=== PATIENT | male | born 1930 | race Hispanic/Latino ===

== ENCOUNTER 2017-11-22 15:37 | Inpatient (IN) | payer MEDICARE ==
[~2017-11-22] VITALS: Ht 165.1 cm; Wt 69.5 kg
[2017-11-22] MEDS ORDERED: ASPIRIN 325 MG TABLET ONE (15:54)
[2017-11-22 16:11] LABS: BASOPHILS % (AUTO) 0.4 % (0.0-5.0); EOSINOPHILS % (AUTO) 0.6 % (0.0-8.0); HEMATOCRIT 38.6 % (42-54); LYMPHOCYTES % (AUTO) 24.6 % (21.0-51.0); MEAN CORPUSCULAR HEMOGLOBIN 32.4 pg (27.0-33.0); MEAN CORPUSCULAR HGB CONC 33.2 g/dL (32.0-36.0); MEAN CORPUSCULAR VOLUME 97.9 fL (79-99); MONOCYTES % (AUTO) 11.8 % (3.0-13.0); NEUTROPHILS % (AUTO) 62.6 % (40.0-77.0); NUCLEATED RED BLOOD CELLS 0.1 % (0.0-0.19); PLATELET COUNT (AUTO) 173 K/uL (130-400); RED BLOOD CELL COUNT(AUTO) 3.94 MIL/uL (4.50-6.20); RED CELL DISTRIBUTION WIDTH 14.6 % (11.0-15.5); WHITE BLOOD COUNT (AUTO) 5.3 K/uL (4.8-10.8)
[2017-11-22 16:33] LABS: INR 1.12 (0.85-1.15); PROTHROMBIN TIME 11.7 SEC (9.6-11.6)
[2017-11-22 16:37] LABS: CREATININE 2.2 mg/dL (0.5-1.5); POTASSIUM 4.8 mmol/L (3.5-5.1)
[2017-11-22 16:47] LABS: ALBUMIN 3.6 g/dL (3.5-5.0); BILIRUBIN,TOTAL 0.6 mg/dL (0.2-1.0)
[2017-11-22 16:58] LABS: APPEARANCE,URINE Clear (CLEAR); BILIRUBIN,URINE Negative (NEGATIVE); COLOR,URINE Yellow (YELLOW); GLUCOSE, URINE (UA) Negative (NEGATIVE); KETONES,URINE Negative (NEGATIVE); LEUKOCYTE ESTERASE ,URINE Trace (NEGATIVE); NITRATE,URINE Negative (NEGATIVE); OCCULT BLOOD,URINE Negative (NEGATIVE); PH,URINE 5.5 (5.0-8.0); PROTEIN,URINE POS 2+ (NEGATIVE)
[2017-11-22] MEDS ORDERED: FUROSEMIDE 10 MG/ML 4ML VIAL ONE (17:11)
[2017-11-22] MEDS ORDERED: NITROGLYCERIN 1GM/1 INCH PACKET TD ONE (17:11)
[2017-11-22 17:12] LABS: BACTERIA,URINE None Seen /HPF (None Seen); RBC,URINE None Seen /HPF (0-1); SQUAMOUS EPITHELIAL CELL,UR 0-2 /HPF (0-2); WBC,URINE 0-1 /HPF (0-1)
[2017-11-22] MEDS ORDERED: SODIUM CHLORIDE 0.9% 1000ML 1,000 ML IV ONE (18:07)
[2017-11-22] MEDS ORDERED: ENOXAPARIN SODIUM 30 MG/0.3 ML SQ ONE (18:07)
[2017-11-22] MEDS ORDERED: METOPROLOL TARTRATE 25 MG TAB PO SCH (21:00)
[2017-11-22] MEDS ORDERED: TAMS-1 PO (22:16)
[2017-11-22] MEDS ORDERED: ASPI-1012 PO (22:16)
[2017-11-22] MEDS ORDERED: SIMV40TA5 PO (22:16)
[2017-11-22] MEDS ORDERED: NITR0.3T11 SL (22:16)
[2017-11-22] MEDS ORDERED: CHOL100018 PO (22:16)
[2017-11-22] MEDS ORDERED: METO25TA6 PO (22:16)
[2017-11-22] MEDS ORDERED: LEVO75TA4 PO (22:16)
[2017-11-22] MEDS ORDERED: CYAN10009 PO (22:16)
[2017-11-22 23:00] VITALS: BP 142/79
[2017-11-22] MEDS: ZOLPIDEM TARTRATE 5 MG TAB PO PRN (23:16)
[2017-11-22] MEDS: TAMSULOSIN HCL 0.4 MG CAP.ER.24H PO SCH (23:18)
[2017-11-22] MEDS: SIMVASTATIN 20 MG TABLET PO SCH (23:18)
[2017-11-23] MEDS ORDERED: NITROGLYCERIN 1GM/1 INCH PACKET TD SCH
[2017-11-23 02:19] LABS: CREATINE KINASE, TOTAL 77 U/L (21-232); MYOGLOBIN 167 ng/mL (10-92); TROPONIN I < 0.04 ng/mL (0.00-0.06)
[2017-11-23 02:36] LABS: HEMATOCRIT 36.4 % (42-54); MEAN CORPUSCULAR HEMOGLOBIN 32.3 pg (27.0-33.0); MEAN CORPUSCULAR HGB CONC 33.2 g/dL (32.0-36.0); MEAN CORPUSCULAR VOLUME 97.2 fL (79-99); PLATELET COUNT (AUTO) 151 K/uL (130-400); RED BLOOD CELL COUNT(AUTO) 3.74 MIL/uL (4.50-6.20); RED CELL DISTRIBUTION WIDTH 14.1 % (11.0-15.5); WHITE BLOOD COUNT (AUTO) 6.7 K/uL (4.8-10.8)
[2017-11-23 02:40] LABS: ALBUMIN 3.5 g/dL (3.5-5.0); BILIRUBIN,TOTAL 1.1 mg/dL (0.2-1.0); CREATININE 2.1 mg/dL (0.5-1.5); MAGNESIUM 1.6 mg/dL (1.80-2.40); POTASSIUM 4.5 mmol/L (3.5-5.1); THYROID STIMULATING HORMONE 2.31 uIU/mL (0.36-3.74); TOTAL PROTEIN, SERUM 6.2 g/dL (6.0-8.3)
[2017-11-23 03:00] VITALS: BP 109/46
[2017-11-23 03:04] LABS: B-TYPE NATRIURETIC PEPTIDE 1490 pg/mL (0-100)
[2017-11-23] MEDS: SODIUM CHLORIDE 0.9% 1000ML 1,000 ML IV SCH ×3 (06:48→21:10)
[2017-11-23] MEDS: LEVOTHYROXINE 75 MCG TABLET PO SCH (06:48)
[2017-11-23 07:00] VITALS: BP 122/57
[2017-11-23] MEDS ORDERED: FUROSEMIDE 10 MG/ML 4ML VIAL IV SCH (07:15)
[2017-11-23] MEDS ORDERED: REGADENOSON 0.4 MG/5 ML PF SYG IVP SCH (08:00)
[2017-11-23 08:12] LABS: CREATINE KINASE, TOTAL 76 U/L (21-232); MYOGLOBIN 188 ng/mL (10-92); TROPONIN I < 0.04 ng/mL (0.00-0.06)
[2017-11-23] MEDS: VITAMIN D3 1000 UNIT PO SCH (09:00)
[2017-11-23] MEDS ORDERED: LISINOPRIL 5 MG TABLET PO SCH (09:00)
[2017-11-23] MEDS: NITROGLYCERIN 1GM/1 INCH PACKET TD SCH ×2 (12:00→16:23)
[2017-11-23 16:00] VITALS: BP 136/66
[2017-11-23] MEDS: ASPIRIN 81MG TAB.CHEW PO SCH (16:21)
[2017-11-23] MEDS: CYANOCOBALAMIN (VITAMIN B-12) 1,000 MCG TABLET PO SCH (16:21)
[2017-11-23] MEDS: ENOXAPARIN SODIUM 30 MG/0.3 ML SQ SCH (16:22)
[2017-11-23 20:00] VITALS: BP 152/73
[2017-11-23] MEDS: ZOLPIDEM TARTRATE 5 MG TAB PO PRN (20:48)
[2017-11-23] MEDS: TAMSULOSIN HCL 0.4 MG CAP.ER.24H PO SCH (20:48)
[2017-11-23] MEDS: SIMVASTATIN 20 MG TABLET PO SCH (20:48)
[2017-11-23 23:00] VITALS: BP 139/62
[2017-11-24] MEDS: NITROGLYCERIN 1GM/1 INCH PACKET TD SCH ×3 (01:10→12:11)
[2017-11-24 03:00] VITALS: BP 137/73
[2017-11-24] MEDS: LEVOTHYROXINE 75 MCG TABLET PO SCH (06:06)
[2017-11-24] MEDS ORDERED: MAGNESIUM 2GM PREMIX 50ML 50 ML IV SCH (06:45)
[2017-11-24 07:15] VITALS: BP 142/67
[2017-11-24] MEDS: ASPIRIN 81MG TAB.CHEW PO SCH (08:42)
[2017-11-24] MEDS: ENOXAPARIN SODIUM 30 MG/0.3 ML SQ SCH (08:42)
[2017-11-24] MEDS: CYANOCOBALAMIN (VITAMIN B-12) 1,000 MCG TABLET PO SCH (08:42)
[2017-11-24] MEDS: VITAMIN D3 1000 UNIT PO SCH (08:43)
[2017-11-24] MEDS ORDERED: LOSARTAN 50 MG TABLET PO SCH (09:00)
[2017-11-24 11:21] VITALS: BP 142/66
[2017-11-24] MEDS ORDERED: CARVEDILOL 3.125 MG TABLET PO SCH (21:00)
== END 2017-11-24 13:45 | disposition home or self-care (01) | DRG 291 ==
LOC: EDH 15:37 → 4CH 17:29 → EDHIP 18:51 → 2DH 20:31
PROVIDERS: ADMIT Family Medicine; ATTEND Family Medicine
DX: I13.0 Hypertensive heart and chronic kidney disease with heart failure and stage 1 through stage 4 chronic kidney disease, or unspecified chronic kidney disease (principal); I50.43 Acute on chronic combined systolic (congestive) and diastolic (congestive) heart failure; I25.119 Atherosclerotic heart disease of native coronary artery with unspecified angina pectoris; E11.22 Type 2 diabetes mellitus with diabetic chronic kidney disease; E78.5 Hyperlipidemia, unspecified; I44.7 Left bundle-branch block, unspecified; N28.9 Disorder of kidney and ureter, unspecified; N40.0 Benign prostatic hyperplasia without lower urinary tract symptoms; E83.42 Hypomagnesemia; N18.9 Chronic kidney disease, unspecified; Z79.899 Other long term (current) drug therapy; Z79.4 Long term (current) use of insulin; I25.2 Old myocardial infarction
CPT/HCPCS: 36415; 71045; 78452; 80053; 80061; 81001; 82550; 83735; 83874; 83880; 84439; 84443; 84481; 84484; 85025; 85027; 85610; 85730; 93005; 93017; 93306; 96374; 99291; A9500; J1650; J1940; J2785; J3475; J7030

== ENCOUNTER 2019-04-09 19:40 | Observation (INO) | payer OTHER ==
[~2019-04-09] VITALS: Ht 172.7 cm; Wt 64.3 kg
[~2019-04-09 19:40] MED LIST: ASPI-1012 PO; CHOL100018 PO; CYAN-52 PO; LEVO75TA4 PO; METO25TA6 PO; NITR0.3T11 SL; SIMV-46 PO; TAMS-1 PO
[2019-04-09 20:26] LABS: BASOPHILS % (AUTO) 0.2 % (0.0-5.0); EOSINOPHILS % (AUTO) 0.8 % (0.0-8.0); HEMATOCRIT 33.2 % (42-54); LYMPHOCYTES % (AUTO) 26.6 % (21.0-51.0); MEAN CORPUSCULAR HEMOGLOBIN 34.7 pg (27.0-33.0); MEAN CORPUSCULAR HGB CONC 32.8 g/dL (32.0-36.0); MEAN CORPUSCULAR VOLUME 105.7 fL (79-99); MONOCYTES % (AUTO) 10.9 % (3.0-13.0); NEUTROPHILS % (AUTO) 61.2 % (40.0-77.0); PLATELET COUNT (AUTO) 185 K/uL (130-400); RED BLOOD CELL COUNT(AUTO) 3.14 MIL/uL (4.50-6.20); RED CELL DISTRIBUTION WIDTH 17.7 % (11.0-15.5); WHITE BLOOD COUNT (AUTO) 6.4 K/uL (4.8-10.8)
[2019-04-09 20:37] LABS: CREATININE 1.6 mg/dL (0.5-1.5); POTASSIUM 4.6 mmol/L (3.5-5.1)
[2019-04-09 20:41] LABS: ALBUMIN 2.9 g/dL (3.5-5.0); BILIRUBIN,TOTAL 0.9 mg/dL (0.2-1.0); TOTAL PROTEIN, SERUM 6.9 g/dL (6.0-8.3)
[2019-04-09 20:42] LABS: INR 1.12 (0.85-1.15); PARTIAL THROMBOPLASTIN TIME 27.9 SEC (26.3-35.5); PROTHROMBIN TIME 11.7 SEC (9.6-11.6)
[2019-04-09] MEDS ORDERED: DiphenhydrAMINE HCL 50 MG/ML VIAL ONE (21:09)
[2019-04-09] MEDS ORDERED: HALOPERIDOL LACTATE 5 MG/ML VIAL ONE (21:48)
[2019-04-09] MEDS ORDERED: ZOSYN 3.375GM+NS 50ML 50 ML IV ONE (21:59)
[2019-04-09] MEDS ORDERED: FAMOTIDINE/PF 20 MG/2 ML VIAL IV ONE (22:00)
[2019-04-09] MEDS ORDERED: ACETAMINOPHEN 325 MG TAB PO PRN (22:00)
[2019-04-09] MEDS ORDERED: ONDANSETRON HCL 4 MG/2 ML VIAL IV PRN (22:00)
[2019-04-09] MEDS ORDERED: LACTULOSE 20 GM/30 ML UDCUP PO PRN (22:00)
[2019-04-09] MEDS ORDERED: LACTATED RINGERS 1000ML 1,000 ML IV ONE (22:00)
[2019-04-09] MEDS ORDERED: INSULIN HUMULIN R 100 UNIT/ML 3ML ONE (22:01)
[2019-04-09] MEDS ORDERED: SODIUM CHLORIDE 0.9% 250 ML IV ONE (23:50)
[2019-04-10] LABS: HEMATOCRIT 34.1 % (42-54)
[2019-04-10] MEDS ORDERED: LORAZEPAM 2 MG/ML 1 ML VIAL ONE (01:00)
[2019-04-10 01:41] VITALS: BP 128/72
[2019-04-10] MEDS ORDERED: ZIPRASIDONE MESYLATE 20 MG/VIAL IM ONE (02:30)
[2019-04-10 03:37] LABS: BASOPHILS % (AUTO) 0.1 % (0.0-5.0); HEMATOCRIT 31.8 % (42-54); LYMPHOCYTES % (AUTO) 9.7 % (21.0-51.0); MEAN CORPUSCULAR HEMOGLOBIN 34.3 pg (27.0-33.0); MEAN CORPUSCULAR HGB CONC 32.4 g/dL (32.0-36.0); MONOCYTES % (AUTO) 8.4 % (3.0-13.0); NEUTROPHILS % (AUTO) 81.2 % (40.0-77.0); NUCLEATED RED BLOOD CELLS 0.2 % (0.0-0.19); PLATELET COUNT (AUTO) 160 K/uL (130-400); RED CELL DISTRIBUTION WIDTH 17.5 % (11.0-15.5); WHITE BLOOD COUNT (AUTO) 8.5 K/uL (4.8-10.8)
[2019-04-10 03:48] VITALS: BP 101/59
[2019-04-10 04:19] LABS: CREATININE 1.9 mg/dL (0.5-1.5); POTASSIUM 4.5 mmol/L (3.5-5.1)
[2019-04-10 07:30] VITALS: BP 100/65
[2019-04-10 08:09] LABS: HEMATOCRIT 29.8 % (42-54)
[2019-04-10] MEDS: FAMOTIDINE/PF 20 MG/2 ML VIAL IV SCH ×2 (08:40→21:13)
[2019-04-10] MEDS: IPRATROPIUM/ALBUTEROL SULFATE 3 ML SOLUTION IH PRN ×3 (09:04→21:10)
[2019-04-10] MEDS ORDERED: CEFTRIAXONE SODIUM 2 GM VIAL IVP SCH (09:15)
[2019-04-10 11:30] VITALS: BP 96/58
--- NOTE | 2019-04-10 11:59 | NUR ---
D/C PLAN CM spoke to patient's daughter named Kaylee. Reports pt has dementia and unable to answer questions. [facility] pt lives with spouse. Has provider about 16 hrs/week. [facility] pt also has private caregiver. Reports pt has assistance 09/09. [facility] pt has w/c and wk at home. [facility] plan is to return home to previous setting. Denies having any home health services. No needs verbalized. Plan to home. CM to f/u. Addendum: 04/10/19 at 1202 by TOPHER CARDONA CM Amended: Links added.
[2019-04-10] MEDS ORDERED: POTASSIUM CHLORIDE 20 MEQ ERTAB PO SCH (12:15)
[2019-04-10] MEDS ORDERED: FUROSEMIDE 10 MG/ML 4ML VIAL IV SCH (12:15)
[2019-04-10 14:17] LABS: HEMATOCRIT 30.6 % (42-54)
[2019-04-10 15:30] VITALS: BP 98/47
[2019-04-10 23:25] VITALS: BP 126/72
[2019-04-11 03:25] VITALS: BP 112/59
[2019-04-11 04:29] LABS: CREATININE 2.3 mg/dL (0.5-1.5); HEMATOCRIT 34.4 % (42-54); MEAN CORPUSCULAR HEMOGLOBIN 34.4 pg (27.0-33.0); MEAN CORPUSCULAR HGB CONC 32.3 g/dL (32.0-36.0); MEAN CORPUSCULAR VOLUME 106.5 fL (79-99); NUCLEATED RED BLOOD CELLS 0.4 % (0.0-0.19); PLATELET COUNT (AUTO) 170 K/uL (130-400); POTASSIUM 5.4 mmol/L (3.5-5.1); RED BLOOD CELL COUNT(AUTO) 3.23 MIL/uL (4.50-6.20); RED CELL DISTRIBUTION WIDTH 17.5 % (11.0-15.5); WHITE BLOOD COUNT (AUTO) 7.4 K/uL (4.8-10.8)
[2019-04-11 05:05] LABS: BAND NEUTROPHILS % (MANUAL) 2 % (0-2); BASOPHILS % (MANUAL) 1 % (0-2); EOSINOPHILS % (MANUAL) 1 % (1-6); LYMPHOCYTES % (MANUAL) 11 % (22-44); MAN.DIFF COMMENT-IMPRESSION MANUAL DIFFERENTIAL; MONOCYTES % (MANUAL) 5 % (2-9); PLATELET MORPHOLOGY COMMENT ADEQUATE; SEGMENTED NEUTROPHILS % 80 % (40-70)
--- NOTE | 2019-04-11 05:55 | NUR ---
MARKETING CONSULTANT PAGED REGARDING DAUGHTER CALLING FOR PATIENT TO HAVE SLEEPING PILL. ORDER RECEIVED AND PLACED IN COMPUTER, PER MARKETING CONSULTANT SLEEPING PILL TO BE USED AT HS ONLY.
[2019-04-11] MEDS ORDERED: TEMAZEPAM 7.5 MG CAPSULE PO PRN (06:00)
[2019-04-11 07:30] VITALS: BP 126/97
[2019-04-11] MEDS ORDERED: FERR325T22 PO (08:45)
[2019-04-11] MEDS ORDERED: ROPI3TAB PO (08:45)
[2019-04-11] MEDS ORDERED: FURO20TA4 PO (08:45)
[2019-04-11] MEDS ORDERED: LORA-192 PO (08:47)
[2019-04-11] MEDS ORDERED: TAMSULOSIN HCL 0.4 MG CAP.ER.24H ONE (08:57)
[2019-04-11] MEDS: CYANOCOBALAMIN (VITAMIN B-12) 1,000 MCG TABLET PO SCH (09:00)
[2019-04-11] MEDS: ROPINIROLE HCL 1 MG TABLET PO SCH ×2 (09:00→20:29)
[2019-04-11] MEDS: FERROUS SULFATE 325 MG TABLET.DR PO SCH ×2 (09:00→17:34)
[2019-04-11] MEDS ORDERED: NITROGLYCERIN 0.4 MG SL TAB SL PRN (09:00)
[2019-04-11] MEDS: SIMVASTATIN 20 MG TABLET PO SCH (09:00)
[2019-04-11] MEDS: ASPIRIN 325 MG TABLET PO SCH (09:00)
[2019-04-11] MEDS: METOPROLOL TARTRATE 25 MG TAB PO SCH ×2 (09:00→17:35)
[2019-04-11] MEDS: **HM** VIT D3 1000 UNITS PO SCH (09:00)
[2019-04-11] MEDS: FAMOTIDINE/PF 20 MG/2 ML VIAL IV SCH ×2 (09:00→20:29)
[2019-04-11] MEDS: FUROSEMIDE 10 MG/ML 4ML VIAL IV SCH (09:11)
[2019-04-11 11:30] VITALS: BP 110/67
[2019-04-11] MEDS: IPRATROPIUM/ALBUTEROL SULFATE 3 ML SOLUTION IH PRN (13:36)
[2019-04-11 15:30] VITALS: BP 100/58
[2019-04-11 16:26] LABS: CREATININE 2.4 mg/dL (0.5-1.5); POTASSIUM 4.9 mmol/L (3.5-5.1)
[2019-04-11 19:32] VITALS: BP 110/60
[2019-04-11] MEDS: SODIUM CHLORIDE 0.9% 250 ML IV SCH ×2 (20:29→22:28)
[2019-04-11] MEDS: GUAIFENESIN-DM 200/20 MG 10 ML PO PRN ×2 (20:29→23:52)
[2019-04-11] MEDS ORDERED: LORAZEPAM 1 MG TABLET PO SCH (21:00)
[2019-04-11] MEDS ORDERED: TAMSULOSIN HCL 0.4 MG CAP.ER.24H PO SCH (21:00)
[2019-04-11 22:22] VITALS: BP 95/48
--- NOTE | 2019-04-11 22:22 | NUR ---
TRANSFER Pt transferred from 2nd floor via wheelchair,aao x 2,pt has dementia.Private sitter at bedside.Iv to left hand leaking,iv dcd.New iv started to left forearm x 1 attempt,aaron wei.Reoriented per staff as needed.
[2019-04-11] MEDS: ACETAMINOPHEN 325 MG TAB PO PRN (23:53)
--- NOTE | 2019-04-11 23:55 | NUR ---
COUGH Pt complaining he did not get his medicine for cough,medicated with guiafenessin.
--- NOTE | 2019-04-12 00:04 | NUR ---
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
--- NOTE | 2019-04-12 00:30 | NUR ---
ACTIVITY Pt assisted to bathroom,aaron well.Pt denies pain or discomfort.
[2019-04-12 01:05] VITALS: BP 134/73
[2019-04-12] MEDS: IPRATROPIUM/ALBUTEROL SULFATE 3 ML SOLUTION IH PRN ×2 (01:20→07:35)
[2019-04-12] MEDS: ACETAMINOPHEN 325 MG TAB PO PRN (02:58)
--- NOTE | 2019-04-12 02:58 | NUR ---
PAIN Medicated with Tylenol for c/o generalized pain.
[2019-04-12 03:55] VITALS: BP 97/68
--- NOTE | 2019-04-12 03:58 | NUR ---
MED EFFECT Pt resting in bed,pt has non productive cough and was NT suctioned per Rt last night.Stefan well.
[2019-04-12 05:58] LABS: CREATININE 2.3 mg/dL (0.5-1.5); POTASSIUM 4.4 mmol/L (3.5-5.1)
[2019-04-12] MEDS: SODIUM CHLORIDE 0.9% 250 ML IV SCH ×2 (06:58→10:34)
[2019-04-12] MEDS ORDERED: LEVOTHYROXINE 75 MCG TABLET PO SCH (07:30)
[2019-04-12 08:00] VITALS: BP 127/67
[2019-04-12] MEDS: **HM** VIT D3 1000 UNITS PO SCH (09:00)
[2019-04-12] MEDS: METOPROLOL TARTRATE 25 MG TAB PO SCH (10:30)
[2019-04-12] MEDS: CYANOCOBALAMIN (VITAMIN B-12) 1,000 MCG TABLET PO SCH (10:30)
[2019-04-12] MEDS: ROPINIROLE HCL 1 MG TABLET PO SCH (10:30)
[2019-04-12] MEDS: FERROUS SULFATE 325 MG TABLET.DR PO SCH (10:30)
[2019-04-12] MEDS: SIMVASTATIN 20 MG TABLET PO SCH (10:30)
[2019-04-12] MEDS: FUROSEMIDE 10 MG/ML 4ML VIAL IV SCH (10:31)
[2019-04-12] MEDS: FAMOTIDINE/PF 20 MG/2 ML VIAL IV SCH (10:31)
[2019-04-12] MEDS: ASPIRIN 325 MG TABLET PO SCH (10:31)
[2019-04-12 12:00] VITALS: BP 120/62
[2019-04-12] MEDS ORDERED: FURO40TA5 PO (12:40)
[2019-04-12] MEDS ORDERED: GUAI5SYR PO (12:40)
[2019-04-12] MEDS ORDERED: ALBU8.5H8 IH (12:40)
--- NOTE | 2019-04-12 13:00 | NUR ---
DYSPHAGIA EVAL COMPLETED. -S/S OF ASPIRATION. RECOMMEND REGULAR TEXTURE, THIN LIQUIDS; PILLS WHOLE WITH LIQUIDS. Addendum: 04/13/19 at 0758 by CYNTHIA SAHA, [facility] Amended: Links added.
[2019-04-12] MEDS ORDERED: CEFU500T67 PO (13:19)
== END 2019-04-12 18:00 | disposition home or self-care (01) ==
LOC: EDH 19:40 → EDHIP 21:57 → 4BH 23:20 → EDHIP 04-10 00:21 → 2AH 04-10 01:14 → 3AH 04-11 20:57
PROVIDERS: ADMIT Family Medicine; ATTEND Family Medicine
DX: K92.2 Gastrointestinal hemorrhage, unspecified (principal); K92.1 Melena; D62 Acute posthemorrhagic anemia; I13.0 Hypertensive heart and chronic kidney disease with heart failure and stage 1 through stage 4 chronic kidney disease, or unspecified chronic kidney disease; I50.32 Chronic diastolic (congestive) heart failure; N18.9 Chronic kidney disease, unspecified; F03.90 Unspecified dementia, unspecified severity, without behavioral disturbance, psychotic disturbance, mood disturbance, and anxiety; E78.5 Hyperlipidemia, unspecified; I42.9 Cardiomyopathy, unspecified; I25.10 Atherosclerotic heart disease of native coronary artery without angina pectoris; E87.1 Hypo-osmolality and hyponatremia; R45.1 Restlessness and agitation; E07.9 Disorder of thyroid, unspecified; Z95.5 Presence of coronary angioplasty implant and graft; Z79.899 Other long term (current) drug therapy
CPT/HCPCS: 36415 ×4; 71045 ×2; 78278; 80048 ×4; 80053; 83690; 83880; 84145; 84443; 84484 ×4; 85014 ×3; 85018 ×3; 85025 ×3; 85610; 85730; 86850; 86900; 86901; 86922; 92610; 93005 ×2; 93306; 94640 ×6; 94664; 96374; 96375; 96376 ×3; 99291; A9512; G0378 ×4; J0696; J1200; J1630; J1815; J1940 ×3; J2060; J2543; J3486; J3490 ×4; J7030 ×4; J7120